=== PATIENT | male | born 1960 | race Caucasian/White ===

== ENCOUNTER 2018-02-23 14:58 | Emergency (ER) | payer OTHER ==
[~2018-02-23] VITALS: Ht 175.3 cm; Wt 86.2 kg
[2018-02-23] MEDS ORDERED: AUGMENTIN 875-1 EACH PO (16:07)
== END 2018-02-23 16:17 | disposition home or self-care (01) ==
LOC: ED 14:58
PROC: 0HQGXZZ Repair Left Hand Skin, External Approach (ICD-10-PCS; principal; 2018-02-23)
DX: S61.012A Laceration without foreign body of left thumb without damage to nail, initial encounter (principal); F17.200 Nicotine dependence, unspecified, uncomplicated; Z88.8 Allergy status to other drugs, medicaments and biological substances; W26.0XXA Contact with knife, initial encounter
CPT/HCPCS: 12001; 99283

== ENCOUNTER 2022-02-23 05:35 | Day surgery (SDC) | payer OTHER ==
[~2022-02-23] VITALS: Ht 175.3 cm; Wt 83.2 kg
[~2022-02-23 05:35] MED LIST: AUGMENTIN 875-1 EACH PO
[2022-02-23] MEDS ORDERED: CITALOPRAM HBR20 MG PO (06:12)
[2022-02-23] MEDS ORDERED: BUSPIRONE HCL5 MG PO (06:12)
[2022-02-23] MEDS ORDERED: NAPROXEN500 MG PO (06:13)
[2022-02-23] MEDS ORDERED: LORATADINE5 MG/5 M2 PO (06:13)
[2022-02-23] MEDS ORDERED: VITAMIN D350 MC3 PO (06:14)
[2022-02-23] MEDS ORDERED: GINKGO BILOBA120 M1 PO (06:14)
[2022-02-23] MEDS ORDERED: NEURONTIN300 MG PO (06:14)
[2022-02-23] MEDS ORDERED: HYDROCODON-ACE1 EA10 PO (07:29)
--- NOTE | 2022-02-23 07:29 | NUR ---
02/23/22 0729 Ashlyn James 0722- PT ARRIVES TO PACU NONAROUSABLE TO STIMULI. PT SNORING. PT'S JAW LIFTED AND THIS CLEARED HIS SNORING. RESP EVEN AND UNLABORED. OXYGEN SAT HIGH 90'S TO 100% ON 6L VIA MASK. 0734- ICE PACK APPLIED TO PT'S LEFT WRIST.
--- NOTE | 2022-02-23 09:43 | OR ---
[facility] [address] [place], [place] [address] Signed DATE OF OPERATION: 02/23/2022 SURGEON: Katelin Gates MD PREOPERATIVE DIAGNOSIS: Carpal tunnel syndrome, left. POSTOPERATIVE DIAGNOSIS: Carpal tunnel syndrome, left. PROCEDURE PERFORMED: Left carpal tunnel release. HIDE MILL MAN: None. ANESTHESIA: Eryn block. TOURNIQUET TIME: 15 minutes. BRIEF HISTORY: Renay is a 61-year-old gentleman with pain and numbness in his hand. Nerve conduction studies confirmed carpal tunnel. He wished to proceed with release. DESCRIPTION OF PROCEDURE: Once consent was obtained, he was taken to the operating room. After adequate anesthesia, he was placed on the operating table. All downside pressure points were well padded. The arm was prepped and draped in standard sterile fashion. After the [place] block was allowed to establish, a 1.5 cm incision was made in the distal wrist crease, carried through skin subcutaneous tissue. There was only a minimal remnant of the palmaris longus and this was retracted. The transverse carpal ligament was dissected free of overlying soft tissue under loupe magnification. It was then released 1 cm proximally and distally to the distal extent. The canal was palpated using a [place] elevator and found to be completely released. The wound was copiously irrigated with normal saline, closed with 3-0 nylon and injected with 7 mL of 0.25% Marcaine with epinephrine at the end. Wound was dressed with bacitracin Adaptic, 4 x 8s, and gauze. He tolerated the procedure well. All sponge, needle, and instrument counts were correct. Electronically Signed By: KATELIN GATES MD 02/23/22 0943 PATIENT NAME: RENAY ELMORE OPERATIVE REPORT DATE OF : 62 REPORT #: [id number] PHYSICIAN: KATELIN GATES MD PCP: BRITTANI PADILLA MD REPORT IS CONFIDENTIAL AND NOT TO BE RELEASED WITHOUT AUTHORIZATION [address] [address] Signed Katelin Gates MD BA/JACKSONL /[id number] Copies: ~ Electronically Signed By: KATELIN GATES MD 02/23/22 0943 PATIENT NAME: RENAY ELMORE OPERATIVE REPORT DATE OF : 62 REPORT #: [id number] PHYSICIAN: KATELIN GATES MD PCP: BRITTANI PADILLA MD REPORT IS CONFIDENTIAL AND NOT TO BE RELEASED WITHOUT AUTHORIZATION
== END 2022-02-23 08:06 | disposition home or self-care (01) ==
LOC: DS 05:35
PROVIDERS: ATTEND Specialist
PROC: 01N50ZZ Release Median Nerve, Open Approach (ICD-10-PCS; principal; 2022-02-23 07:00)
DX: G56.02 Carpal tunnel syndrome, left upper limb (principal); R00.1 Bradycardia, unspecified; Z88.8 Allergy status to other drugs, medicaments and biological substances
CPT/HCPCS: J0690; J1885; J2704; J7121

== ENCOUNTER 2022-04-13 06:30 | Day surgery (SDC) | payer OTHER ==
[~2022-04-13] VITALS: Ht 175.3 cm; Wt 80.9 kg
--- NOTE | ~2022-04-13 | OR ---
[facility] [address] [place], [place] [address] Draft DATE OF OPERATION: 04/13/2022 SURGEON: Katelin Gates MD PREOPERATIVE DIAGNOSIS: Carpal tunnel syndrome, right. POSTOPERATIVE DIAGNOSIS: Carpal tunnel syndrome, right. PROCEDURE PERFORMED: Carpal tunnel release, right. PROBATION AND PATROL AGENT: None. ANESTHESIA: Eryn block. TOURNIQUET TIME: 14 minutes. BRIEF HISTORY: Renay is a 61-year-old gentleman with pain and numbness in his hand. Nerve conduction studies were consistent with significant carpal tunnel. Risks, benefits, and alternatives of operative treatment were discussed with him and he elected to proceed. DESCRIPTION OF PROCEDURE: Once consent was obtained, he was taken to the operating room. After adequate anesthesia, he was left on the day surgery cart. The hand table was brought in and the arm was prepped and draped in a standard sterile fashion. The carpal tunnel was approached through a 1.5 cm incision in the distal wrist crease. This was carried through the skin and subcutaneous tissue. Palmaris longus was identified, retracted, and protected. Under loupe magnification, the transverse carpal ligament was identified and dissected free of overlying soft tissue. It was released proximally a cm and distally to the distal extent again under direct loupe magnification. This was palpated using a [place] and found to be completely released. The wound was copiously irrigated with normal saline, closed with 3-0 nylon. The wound was injected with 7 mL of 0.25% plain Marcaine. The wound was dressed with Adaptic, ABD, and Cole wrap. He tolerated the procedure well. PATIENT NAME: RENAY ELMORE OPERATIVE REPORT DATE OF : 62 REPORT #: [id number] PHYSICIAN: KATELIN GATES MD PCP: JODI ORTIZ MD REPORT IS CONFIDENTIAL AND NOT TO BE RELEASED WITHOUT AUTHORIZATION [facility] [address] [facility] [place], [place] [address] Draft All sponge, needle, and instrument counts were correct. Katelin Gates MD BA/MODL /[id number] Copies: ~ PATIENT NAME: RENAY ELMORE OPERATIVE REPORT DATE OF : 62 REPORT #: [id number] PHYSICIAN: KATELIN GATES MD PCP: JODI ORTIZ MD REPORT IS CONFIDENTIAL AND NOT TO BE RELEASED WITHOUT AUTHORIZATION
[~2022-04-13 06:30] MED LIST changes: +BUSPIRONE HCL5 MG PO; +CITALOPRAM HBR20 MG PO; +GINKGO BILOBA120 M1 PO; +HYDROCODON-ACE1 EA10 PO; +LORATADINE5 MG/5 M2 PO; +NAPROXEN500 MG PO; +NEURONTIN300 MG PO; +VITAMIN D350 MC3 PO
[2022-04-13] MEDS ORDERED: HYDROCODON-ACE1 EA10 PO (08:38)
== END 2022-04-13 09:25 | disposition home or self-care (01) ==
LOC: DS 06:30
PROVIDERS: ATTEND Specialist
PROC: 01N50ZZ Release Median Nerve, Open Approach (ICD-10-PCS; principal; 2022-04-13 07:50)
DX: G56.01 Carpal tunnel syndrome, right upper limb (principal); Z88.8 Allergy status to other drugs, medicaments and biological substances
CPT/HCPCS: J0690; J1885; J2001; J2250; J2704; J7121

== ENCOUNTER 2024-10-12 12:36 | Observation (INO) | payer OTHER ==
[~2024-10-12] VITALS: Ht 175.3 cm; Wt 83.3 kg
[2024-10-12] MEDS ORDERED: LISINOPRIL20 MG (13:04)
[2024-10-12 13:13] LABS: BASOPHILS 0.4 % (0-2); EOSINOPHILS 3.2 % (0-6); HEMATOCRIT 39.3 % (35.0-50.0); HEMOGLOBIN 13.5 g/dL (12.0-18.0); LYMPHOCYTES 35.3 % (24-44); MCH 32.4 (27-36); MCHC 34.5 g/dl (30-36); MONOCYTES 8.3 % (0-12); NEUTROPHILS 52.8 % (39-80); PLATELET COUNT 244 K/uL (140-440); RBC 4.18 M/ul (4.3-5.7); RDW 13.2 (10.5-15.0)
[2024-10-12 13:27] LABS: PROTIME 13.1 Sec (11.2-14.2)
[2024-10-12 13:30] LABS: PARTIAL THROMBOPLASTIN TIME 26.2 Sec (22.9-41.3)
[2024-10-12 13:31] LABS: ALBUMIN 3.8 g/dL (3.4-5.0); ALBUMIN/GLOBULIN RATIO 1.36 (1.1-2.4); ANION GAP 10.2 (7-21); BILIRUBIN, TOTAL 0.5 ng/dL (0.2-1.0); BUN/CREATININE RATIO 18.08 (6.0-28.6); CALCIUM 9.3 mg/dL (8.5-10.1); CREATININE, SERUM 0.94 mg/dL (0.70-1.30); POTASSIUM 4.2 mmol/L (3.5-5.1); PROTEIN, TOTAL 6.6 g/dL (6.4-8.2)
[2024-10-12] MEDS ORDERED: hydrALAZINE HCL 20 MG/ML VIAL IV ONE (17:15)
[2024-10-12] MEDS ORDERED: LISINOPRIL20 MG PO (20:08)
[2024-10-12] MEDS ORDERED: BUSPIRONE HCL5 MG PO (20:09)
[2024-10-12] MEDS ORDERED: CITALOPRAM HBR20 MG PO (20:09)
[2024-10-12 20:11] VITALS: BP 171/100
[2024-10-12] MEDS ORDERED: FLUTICASONE PRO16 GM INH (20:11)
[2024-10-12] MEDS ORDERED: LORATADINE10 MG PO (20:11)
[2024-10-12 20:13] VITALS: BP 158/98
[2024-10-12 20:15] VITALS: BP 178/133
[2024-10-12] MEDS ORDERED: ACETAMINOPHEN 325 MG TAB PO PRN (20:15)
[2024-10-12] MEDS ORDERED: ondansetron HCL 4 MG/2 ML VIAL IV PRN (20:15)
[2024-10-12] MEDS ORDERED: NICOTINE POLACRILEX 4 MG LOZENGE BUCCAL PRN (20:15)
--- NOTE | 2024-10-12 20:15 | NUR ---
ORTHOSTATIC VITAL SIGNS COMPLETED. PATIENT DENIES SOB, DIZZINESS OR LIGHTHEADEDNESS THROUGHOUT ALL STAGES OF ORTHOSTATIC VS.
[2024-10-12 20:24] VITALS: BP 171/100
[2024-10-12] MEDS ORDERED: NICOTINE 21 MG/24 HR 1 EA TDSY TD SCH (20:28)
[2024-10-12] MEDS ORDERED: LIPITOR10 MG PO (20:37)
[2024-10-12] MEDS ORDERED: CITALOPRAM HYDROBROMIDE 20 MG TAB PO SCH (21:00)
[2024-10-12] MEDS ORDERED: busPIRone HCL 5 MG TAB PO SCH (21:00)
[2024-10-12 22:00] VITALS: BP 141/86
--- NOTE | 2024-10-12 22:25 | NUR ---
LATE ENTRY PATIENT ARRIVED TO UNIT AT 20:08 VIA STRETCHER. REPORT RECEIVED FROM CAROLINA VOGEL. PATIENT STO[facility] UP FROM [facility] AND AMBULATED TO BED. ORIENTED TO ROOM, NURSING STAFF, CALL LIGHT FUNCTIONS AND SAFETY EDUCATION PROVIDED. PATIENT AGREES TO USE CALL LIGHT FOR ASSISTANCE. PATIENT IS AOX4. DENIES PAIN. ORTHOSTATIC VS OBTAINED AND REVIEWED WITH DR. KEARNEY. UPDATED PROVIDER ON PATIENT HAVING HOME CPAP BROUGHT IN. ORDER PLACED FOR RT CONSULT AND RT NOTIFIED. RT IN ROOM FOR CPAP EVAL ONCE IT WAS BROUGHT IN. HS MEDICATIONS GIVEN WITHOUT DIFFICULTY. PATIENT REMAINS HYPERTENSIVE. HE REPORTS HE ALWAYS HAS A LOW HR. HR DID DROP TO 48-[address]. KEARNEY NOTIFIED.
--- NOTE | 2024-10-12 22:37 | NUR ---
PATIENT USED CALL LIGHT TO REPORT HE IS READY FOR BED. CONTRACT OFFICER IN ROOM TO ASSIST WITH SCD PLACEMENT.
--- NOTE | 2024-10-12 22:44 | NUR ---
AMINAH SETUP THE SCD'S ON PT.
[2024-10-12] MEDS ORDERED: LIPITOR20 MG PO (22:56)
[2024-10-12] MEDS ORDERED: AMLODIPINE PO (22:57)
[2024-10-13] VITALS (7 sets, daily range): BP systolic 123–162; BP diastolic 66–109
--- NOTE | 2024-10-13 00:41 | NUR ---
PATIENT RESTING QUIETLY WITH EYES CLOSED. RESPIRATIONS EVEN AND UNLABORED; HOME CPAP ON. HR 60-61; SPO2 95% RA; RR 15. PATIENT APPEARS RELAXED AND IN NAD. CALL LIGHT AND PERSONAL ITEMS IN REACH.
--- NOTE | 2024-10-13 03:05 | NUR ---
PATIENT RESTING IN BED WITH CPAP ON AND EYES CLOSED; WOKE TO NAME. PARTICIPATES IN ASSESSMENT. DENIES PAIN. REMAINS BRADYCARDIC IN THE MID TO HIGH 50S ON MONITOR, SINUS HOWARD. SPO2 WHILE SLEEPING 97% CPAP, NO O2 BLED IN. TRENDING BP Q2H AT THIS TIME.
[2024-10-13 05:41] LABS: BASOPHILS 1.3 % (0-2); HEMATOCRIT 38.3 % (35.0-50.0); HEMOGLOBIN 13.3 g/dL (12.0-18.0); LYMPHOCYTES 35.9 % (24-44); MCH 32.7 (27-36); MCHC 34.7 g/dl (30-36); MCV 94.3 fl (81-99); MONOCYTES 7.8 % (0-12); PLATELET COUNT 252 K/uL (140-440); RBC 4.07 M/ul (4.3-5.7); RDW 13.6 (10.5-15.0)
--- NOTE | 2024-10-13 05:46 | NUR ---
PATIENT WAKES EASILY TO NAME. LAB IN ROOM TO DRAW BLOOD. ORTHOSTATIC VS TAKEN CHARTED. PATIENT DENIED ANY DIZZINESS OR LIGHTHEADEDNESS. URINAL OFFERED AND PATIENT VOIDED 500ML. DENIES PAIN, NEEDS OR CONCERNS THAT THIS TIME. CALL LIGHT IN REACH.
[2024-10-13 05:54] LABS: ANION GAP 9.9 (7-21); BUN/CREATININE RATIO 15.95 (6.0-28.6); CALCIUM 9.3 mg/dL (8.5-10.1); CREATININE, SERUM 0.94 mg/dL (0.70-1.30); MAGNESIUM 1.8 mg/dL (1.8-2.4); POTASSIUM 3.9 mmol/L (3.5-5.1)
[2024-10-13 07:20] LABS: TSH, 3RD GENERATION 2.066 uIU/mL (0.358-3.740)
--- NOTE | 2024-10-13 08:05 | NUR ---
REPORT RECIEVED FROM CAROLINA KAISER. PT AWAKE AND SITTING UPRIGHT IN BED. GIVEN BREAKFAST TRAY AND STATED WILL BE BACK FOR ASSESSMENT OF IF HE NEEDS ANYTHING. PT STATES HIS SHOULD BE HERE SHORTLY. CALL LIGHT IN REACH.
[2024-10-13] MEDS ORDERED: lisinopriL 20 MG TAB PO SCH (09:00)
[2024-10-13] MEDS ORDERED: AMLODIPINE BESYLATE 5 MG TAB PO SCH (09:00)
--- NOTE | 2024-10-13 09:28 | NUR ---
UR CLINICAL REVIEW: [facility] OBS CRITERIA FOR [facility] OBS 10/12/24 @1946 ORDER MATCHES REG NO AUTH REQUIRED PER [facility] GUIDELINES.CLINICAL FAXED TO [facility] FOR REVIEW. POSSIBLE DISCHARGE TO HOME THIS AFTERNOON 11/03/24
--- NOTE | 2024-10-13 09:38 | NUR ---
PT SITTING UP IN BED, TALKING WITH AT BEDSIDE. FRESH COFFEE AND ICE WATER BROUGHT PER PT REQUEST. CALL LIGHT AND PERSONAL BELONGINGS WITHIN REACH. DENIES ANY FURTHER NEEDS AT THIS TIME. MORNING ASSESSMENT DONE, MEDS ADMINISTERED.
--- NOTE | 2024-10-13 09:54 | NUR ---
assumed care bedside report from robbie garcia. pt resting with at side and anticipate dc to home today.
--- NOTE | 2024-10-13 10:08 | NUR ---
ALERT AND ORIENTED IN BED. SIGINIFICANT OTHER AT BEDSIDE. LIVES IN HOUSE. HAS A CPAP MACHINE AT HOME. DRIVES AT BASELINE. DENIES DIFFICULTY PAYING FOR UTILITIES, FOOD OR MEDICATIONS. DENIES CM NEEDS AT THIS TIME. PLANNING TO DC LATER TODAY TO HOME.
--- NOTE | 2024-10-13 10:22 | NUR ---
VISITED DURING SPIRITUAL CARE ROUNDS. PT SUPPORTED BY IN ROOM. BOTH IN OVERALL GOOD SPIRITS, LOOKING FORWARD TO IMMINENT DISCHARGE, NO IMMEDIATE NEEDS. MEDICINE TEACHER PROVIDED SUPPORTIVE PRESENCE, HOSPITALITY, PRAYER, FACILITATED INTERACTION WITH THERAPY ANIMAL. PT AND EXPRESSED GRATITUDE.
[2024-10-13] MEDS ORDERED: AMLODIPINE BESYL5 MG PO (11:33)
[2024-10-13] MEDS ORDERED: PHARMACY RENAL DOSE ADJUSTMENT 1 DOSE MISC PO SCH (12:00)
--- NOTE | 2024-10-13 15:05 | EKG ---
[facility] [address] [facility] [place], [place] [address] Signed Sinus bradycardia Otherwise normal ECG No previous ECGs available Confirmed by Teresa Kaur MD ([id number]) on 10/13/2024 3:05:30 PM Electronically Signed By: TERESA KAUR MD 10/13/24 1505 PATIENT NAME: RENAY ELMORE Electrocardiogram DATE OF : 62 PHYSICIAN: TERESA KAUR MD REPORT #: [id number] REPORT IS CONFIDENTIAL AND NOT TO BE RELEASED WITHOUT AUTHORIZATION
== END 2024-10-13 12:05 | disposition home or self-care (01) ==
LOC: ED 12:36 → CCU 19:46
PROVIDERS: Emergency Medicine; ADMIT Student in an Organized Health Care Education/Training Program; ATTEND Student in an Organized Health Care Education/Training Program
DX: I10 Essential (primary) hypertension (principal); G47.33 Obstructive sleep apnea (adult) (pediatric); M19.90 Unspecified osteoarthritis, unspecified site; F41.9 Anxiety disorder, unspecified; F17.200 Nicotine dependence, unspecified, uncomplicated; Z79.899 Other long term (current) drug therapy; Z88.8 Allergy status to other drugs, medicaments and biological substances
CPT/HCPCS: 36415; 70496; 70498; 80048; 80053; 83735; 83880; 84439; 84443; 84484; 85025; 85610; 85730; 93005; 93010; 99285-25; G0378; J0360